=== PATIENT | male | born 1990 | race Caucasian/White ===

== ENCOUNTER 2022-12-02 10:09 | Emergency (ER) | payer OTHER ==
[~2022-12-02] VITALS: Ht 193 cm; Wt 142.9 kg
[2022-12-02] MEDS ORDERED: EPINEPHRINE HCL/PF 1 MG/ML AMP ONE (10:13)
[2022-12-02] MEDS ORDERED: methylPREDNISolone SOD SUCC/PF 62.5 MG/ML VIAL ONE ×2 (10:15→10:18)
[2022-12-02] MEDS ORDERED: METHYLPREDNISOLONE SOD SUCC 40 MG/ML VIAL IVP ONE (10:15)
[2022-12-02] MEDS ORDERED: DIPHENHYDRAMINE INJ 50 MG/ML VIAL IVP ONE (10:15)
[2022-12-02] MEDS ORDERED: EPINEPHrine HCL 1 MG/ML VIAL SUBCUT ONE (10:15)
[2022-12-02 10:18] VITALS: BP_SYST 148; PULSE 76; RESP 18; TEMP 98.3; O2SAT 98
[2022-12-02] MEDS ORDERED: FAMOTIDINE PF 20 MG/2 ML VIAL IVP ONE (10:30)
[2022-12-02 10:31] LABS: BASOPHILS # (AUTO) 0.1 K/uL (0.0-0.2); EOSINOPHILS # (AUTO) 0.7 K/uL (0.0-0.4); EOSINOPHILS % (AUTO) 8.7 % (0.0-4.0); HEMATOCRIT 42.9 % (36-54); HEMOGLOBIN 14.6 g/dL (14.0-18.0); LYMPHOCYTES % (AUTO) 34.9 % (20.5-51.5); MEAN CORPUSCULAR HEMOGLOBIN 28 pg (27-31); MEAN CORPUSCULAR HGB CONC 34 % (32-36); MEAN CORPUSCULAR VOLUME 81 fL (79.0-98.0); MONOCYTES # (AUTO) 0.6 K/uL (0.0-1.0); MONOCYTES % (AUTO) 6.8 % (1.7-9.3); NEUTROPHILS # (AUTO) 4.1 K/uL (1.8-7.7); NEUTROPHILS % (AUTO) 48.6 % (40.0-70.0); PLATELET COUNT (AUTO) 332 K/uL (130-430); RED BLOOD CELL COUNT(AUTO) 5.29 MIL/uL (4.2-6.2); RED CELL DISTRIBUTION WIDTH 14.1 % (9.0-15.0); WHITE BLOOD COUNT (AUTO) 8.5 K/uL (4.8-10.8)
[2022-12-02 10:45] LABS: CALCIUM 8.8 mg/dL (8.4-11.0); CREATININE 1.21 mg/dL (0.55-1.30)
[2022-12-02] MEDS ORDERED: ASPIRIN 325 MG TABLET (ECOTRIN) PO ONE (13:00)
[2022-12-02] MEDS ORDERED: NITROGLYCERIN 1 INCH (GM) OINT. TP ONE (13:00)
[2022-12-02 14:00] VITALS: BP_SYST 129; PULSE 89; RESP 19; TEMP 97.6; O2SAT 96
== END 2022-12-02 13:42 | disposition left against medical advice (07) ==
LOC: SED 10:09
DX: T63.461A Toxic effect of venom of wasps, accidental (unintentional), initial encounter (principal); R79.89 Other specified abnormal findings of blood chemistry; I50.9 Heart failure, unspecified; Z91.030 Bee allergy status; Z79.899 Other long term (current) drug therapy
CPT/HCPCS: 99285; 96374; 71045; 96375; 80048; 83880; 85025; 84484; 36415; 93005; 96372; J1200; J0171; J2930